=== PATIENT | male | born 1940 | race Two or more races ===

== ENCOUNTER 2020-10-29 08:36 | Outpatient (CLI) | payer OTHER ==
[~2020-10-29 08:36] MED LIST: DOXYCYCLINE HY100 M2 PO; INTESTINEX1 CA1 PO; Paxil PO; VITAMIN C500 M5; VITAMIN D400 UNI2
== END 2020-10-29 08:46 | disposition home or self-care (01) ==
LOC: RAD 08:36
PROVIDERS: ATTEND Orthopaedic Surgery
DX: M25.552 Pain in left hip (principal); M25.551 Pain in right hip

== ENCOUNTER 2021-01-21 12:52 | Outpatient (CLI) | payer OTHER | END 2021-01-21 12:54 | disposition home or self-care (01) | LOC: NUCLEAR 12:52 | PROVIDERS: ATTEND Orthopaedic Surgery | DX: M81.0 Age-related osteoporosis without current pathological fracture (principal) ==

== ENCOUNTER 2021-02-12 07:20 | Outpatient (CLI) | payer OTHER | END 2021-02-12 07:22 | disposition home or self-care (01) | LOC: LAB 07:20 | PROVIDERS: ATTEND Orthopaedic Surgery | DX: E55.9 Vitamin D deficiency, unspecified (principal); M85.88 Other specified disorders of bone density and structure, other site; E56.1 Deficiency of vitamin K ==

== ENCOUNTER 2023-08-28 08:48 | Outpatient (CLI) | payer OTHER ==
[2023-08-28 10:18] LABS: PH,URINE 7.5 (5.0-8.0); URINE APPEARANCE Clear; URINE BILIRRUBIN Negative (NEGATIVE); URINE BLOOD Negative; URINE COLOR Yellow; URINE GLUCOSE Negative (NEGATIVE); URINE LEUKOCYTE Negative; URINE NITRATE Negative; URINE PROTEIN Negative (NEGATIVE); URINE UROBILINOGEN 0.2 E.U./dl
[2023-08-28 10:23] LABS: URINE RBC 29.2 uL (0.0-20.8)
[2023-08-28 10:27] LABS: URINE BACTERIA 2.5 uL (0.0-1933); URINE EPITHELIAL CELLS 0.1 uL (0.0-38.8); URINE WBC 0.3 uL (0.0-23.2)
[2023-08-28 10:51] LABS: HEMOGLOBIN 14.6 g/dL (13-16.00); MEAN CELL VOLUME 86.2 fL (80.0-100.00); MEAN CORPUSCULAR HEMOGLOBIN 29.3 pg (27.00-32.0); PLATELET COUNT 295 K/uL (150-450); RED BLOOD COUNT 4.99 M/uL (4.00-6.00); RED CELL DISTRIBUTION WIDTH 13.6 % (11.5-14.5)
[2023-08-28 11:00] LABS: ALBUMIN 4.3 gm/dL (3.4-5.0); CHOL HDL RATIO 3.6 (0-5.0); CREATININE SERUM 0.94 mg/dL (0.70-1.30); GFR 76.83; GLOBULINA 3.3 G/DL (2.4-3.5); POTASSIUM 4.2 mEq/L (3.5-5.1); TOTAL PROTEIN 7.6 gm/dL (6.4-8.2)
== END 2023-08-28 23:00 | disposition home or self-care (01) ==
LOC: LAB 08:48
PROVIDERS: ATTEND Orthopaedic Surgery
DX: I10 Essential (primary) hypertension (principal); Z01.810 Encounter for preprocedural cardiovascular examination; M54.50 Low back pain, unspecified

== ENCOUNTER → 2025-06-08 09:37 | Outpatient (CLI) | payer OTHER ==
[2025-06-08 10:31] LABS: BASO % 1.6 % (0.1-1.2); EOS # 0.29 (0.04-0.54); EOS % 4.2 % (0.7-7.0); LYMPH # 1.32 (1.18-3.74); LYMPH % 19.1 % (19.3-53.1); MEAN PLATELET VOLUME 9.70 fl (9.4-12.4); MONO # 0.44 (0.24-0.82); MONO % 6.4 % (4.7-12.5); NEUT # 4.75 (1.56-6.13); NEUT % 68.6 % (34.0-71.1); RED CELL DISTRIBUTION WIDTH 14.2 % (11.6-14.4)
[2025-06-08 10:38] LABS: URINE APPEARANCE Clear; URINE BILIRRUBIN Negative (NEGATIVE); URINE BLOOD Negative; URINE COLOR Yellow; URINE GLUCOSE Negative (NEGATIVE); URINE KETONE Negative (NEGATIVE); URINE LEUKOCYTE Negative; URINE NITRATE Negative; URINE PROTEIN Negative (NEGATIVE); URINE UROBILINOGEN 0.2 E.U./dl
[2025-06-08 10:42] LABS: URINE RBC 17.5 uL (0.0-20.8)
[2025-06-08 11:11] LABS: URINE BACTERIA 1.1 uL (0.0-1933); URINE CAST 0.00 uL (0.0-1.40); URINE EPITHELIAL CELLS 0.7 uL (0.0-38.8); URINE WBC 0.3 uL (0.0-23.2)
[2025-06-08 12:01] LABS: ALT/SGPT 18.0 U/L (12-78); AST/SGOT 10.0 U/L (15-37); BILIRUBIN TOTAL 0.74 mg/dL (0.3-1.2); BUN CREA RATIO 11.0 (7.0-25.0); CHOL HDL RATIO 3.3 (0-5.0); CREATININE SERUM 0.93 mg/dL (0.70-1.30); GFR 77.41; GLOBULINA 2.9 G/DL (2.4-3.5); GLUCOSE FASTING 93.0 mg/dL (65-100); HDL 42.0 mg/dl (40-60); LDL 89.0 mg/dl (0-130); OSMOLALITY SERUM 280.0 MOSM/KG (275-295); T3 UPTAKE 32.0 % (33-40); T4 TOTAL 5.15 UG/DL (4.5-12.1); TSH 1.32 uIU/mL (0.358-3.74); VLDL 9.0 (0-39)
== END | disposition home or self-care (01) ==
LOC: LAB 09:37
PROVIDERS: ATTEND Internal Medicine
DX: N41.1 Chronic prostatitis (principal); N41.8 Other inflammatory diseases of prostate; I10 Essential (primary) hypertension